=== PATIENT | female | born 1985 | race Caucasian/White ===

== ENCOUNTER 2018-03-14 19:47 | Emergency (ER) | payer OTHER ==
[~2018-03-14] VITALS: Ht 175.3 cm; Wt 79.4 kg
[~2018-03-14 19:47] MED LIST: Bactrim Ds Tab1 EACH PO; Benadryl 50 mg50 MG PO; Cleocin HCl300 MG PO; Flagyl250 MG PO; HCTZ; HYDACE5 PO; IBUP600 PO; Keflex500 MG PO; MEDR150I IM; MULVITMINE; Naprosyn500 MG PO; OXYACE5T PO; OXYC5 PO; PROM25 PO; Permethrin60 GM TP; Phenergan25 M1 PO; TRAM50 PO; [UNRECOGNIZED DRUG - OTHER]; [UNRECOGNIZED DRUG - REMARK]
== END 2018-03-14 20:09 | disposition home or self-care (01) ==
LOC: ER 19:47
DX: L23.7 Allergic contact dermatitis due to plants, except food (principal); F17.200 Nicotine dependence, unspecified, uncomplicated
CPT/HCPCS: 96372; 99283; J3301

== ENCOUNTER 2018-09-22 05:24 | Emergency (ER) | payer OTHER ==
[~2018-09-22] VITALS: Ht 175.3 cm; Wt 86.2 kg
[~2018-09-22 05:24] MED LIST changes: +Prednisone20 MG PO
[2018-09-22] MEDS ORDERED: Vistaril25 MG PO (06:36)
== END 2018-09-22 06:52 | disposition home or self-care (01) ==
LOC: ER 05:24
DX: L50.9 Urticaria, unspecified (principal); F17.210 Nicotine dependence, cigarettes, uncomplicated
CPT/HCPCS: 96372; 99282-25; J1100

== ENCOUNTER → 2019-07-08 | Outpatient (CLI) | payer OTHER ==
[~2019-07-08] MED LIST changes: +Vistaril25 MG PO
[2019-07-08 14:12] LABS: Candida species (DNA Probe) Negative (NEGATIVE); G. vaginalis (DNA Probe) Negative (NEGATIVE); T. vaginalis (DNA Probe) Negative (NEGATIVE)
[2019-07-10 08:06] LABS: CHLAMYDIA BY NAA Negative (Negative); GONOCOCCUS BY NAA Negative (Negative); TRICH VAG BY NAA Negative (Negative)
[2019-07-12 15:07] LABS: HPV 16 Negative (Negative); HPV 18 Negative (Negative); HPV OTHER HR TYPES Negative (Negative)
== END ==
LOC: LAB 10:55 → LAB SHORT 10:55
PROVIDERS: Nurse Practitioner Family
DX: Z01.419 Encounter for gynecological examination (general) (routine) without abnormal findings (principal); Z11.3 Encounter for screening for infections with a predominantly sexual mode of transmission
CPT/HCPCS: 87070; 87205; 87480; 87491; 87510; 87529; 87591; 87624; 87660; 87661; G0123

== ENCOUNTER 2019-10-02 18:17 | Emergency (ER) | payer OTHER ==
[~2019-10-02] VITALS: Ht 175.3 cm; Wt 79.4 kg
[2019-10-02] MEDS ORDERED: Monodox100 MG PO (20:22)
[2019-10-02] MEDS ORDERED: IBUP800 PO (20:22)
== END 2019-10-02 20:29 | disposition home or self-care (01) ==
LOC: ER 18:17
DX: L02.31 Cutaneous abscess of buttock (principal); L03.317 Cellulitis of buttock; F17.200 Nicotine dependence, unspecified, uncomplicated
CPT/HCPCS: 10061; 99283-25

== ENCOUNTER → 2020-08-23 | Outpatient (CLI) | payer OTHER ==
[~2020-08-23] MED LIST changes: +IBUP800 PO; +Monodox100 MG PO
[2020-08-25 06:09] LABS: CHLAMYDIA TRACHOMATIS, NAA Negative (Negative)
== END ==
LOC: LAB 14:00
PROVIDERS: Nurse Practitioner Family
DX: Z20.2 Contact with and (suspected) exposure to infections with a predominantly sexual mode of transmission (principal); Z72.51 High risk heterosexual behavior
CPT/HCPCS: 87491; 87591

== ENCOUNTER → 2024-07-11 | Outpatient (CLI) | payer OTHER ==
[~2024-07-11] MED LIST changes: +Norco 5-325 Ta1 EACH PO; +ONDA4ODT MM
[2024-07-21 19:01] LABS: HPV HIGH RISK BY TMA Not Detected; HPV SOURCE Cervical
== END ==
LOC: LAB 09:31 → LAB SHORT 09:31
PROVIDERS: Obstetrics & Gynecology
DX: Z01.419 Encounter for gynecological examination (general) (routine) without abnormal findings (principal)
CPT/HCPCS: 87624; G0123